=== PATIENT | female | born 1980 | race Caucasian/White ===

== ENCOUNTER 2016-09-27 18:09 | Emergency (ER) | payer OTHER | END 2016-09-27 19:28 | disposition home or self-care (01) | DX: B37.3 Candidiasis of vulva and vagina (principal); N76.0 Acute vaginitis; B96.89 Other specified bacterial agents as the cause of diseases classified elsewhere ==

== ENCOUNTER 2016-10-20 10:17 | Outpatient (CLI) | payer OTHER | END 2016-10-20 10:18 | disposition home or self-care (01) | DX: R10.2 Pelvic and perineal pain (principal) ==

== ENCOUNTER 2016-12-04 19:07 | Outpatient (CLI) | payer OTHER | END 2016-12-04 19:08 | disposition home or self-care (01) | DX: N83.202 Unspecified ovarian cyst, left side (principal) ==

== ENCOUNTER 2018-04-23 08:00 | Outpatient (CLI) | payer BC, OTHER ==
[2018-04-23] MEDS ORDERED: GADOBUTROL 10 MMOL/10 ML VIAL ONE (08:14)
[2018-04-23] MEDS ORDERED: GADOBUTROL 10 MMOL/10 ML VIAL IVP ONE (09:29)
--- NOTE | 2018-04-23 11:26 | MRI Report ---
Reason: LEFT KNEE PAIN Procedure Date: 04/23/2018 Accession Number: [id number] / [id number] Procedure: MRI - Knee LT W/O CPT Code: FULL RESULT: EXAM: LEFT KNEE MRI WITHOUT CONTRAST EXAM DATE: 04/23/2018 08:10 AM. CLINICAL HISTORY: Left knee pain. COMPARISON: Knee 3 view left 01/23/2018 3:03 PM. TECHNIQUE: Multiplanar, multisequence T1-weighted and fluid-sensitive sequences of the knee without contrast. Other: None. FINDINGS: Bones: Previous ACL repair. Bone grafts and hardware in expected positions with local metallic artifact. Alignment normal. No fracture or marrow edema. Articular Cartilage: Unremarkable. Medial Meniscus: The medial meniscus is intact. Lateral Meniscus: The lateral meniscus is intact. Cruciate Ligaments: ACL graft intact. PCL intact. Collateral Ligaments: The medial collateral and lateral collateral ligamentous structures are intact. Tendons: The quadriceps, patellar, semimembranosus, and popliteus tendons are unremarkable. Musculature: No edema or fatty atrophy. Other: No effusion. No popliteal cyst. No loose bodies. The medial and lateral retinacula are intact. The subcutaneous tissues and fat pads are unremarkable. IMPRESSION: 1. ACL graft repair appears intact. 2. Alignment normal. No fracture or marrow edema. 3. No additional evidence of internal derangement. [facility] MUSCULOSKELET[facility] SECTION
--- NOTE | 2018-04-23 12:00 | MRI Report ---
Reason: LEFT KNEE PAIN Procedure Date: 04/23/2018 Accession Number: [id number] / [id number] Procedure: MRI - Lower Leg (Tib-Fib) LT W/WO CPT Code: FULL RESULT: EXAM: LEFT ANKLE/HINDFOOT MRI WITHOUT AND WITH CONTRAST EXAM DATE: 04/23/2018 09:39 AM. CLINICAL HISTORY: Left knee pain. COMPARISON: Ankle 3 view left 01/23/2018 3:44 PM. TECHNIQUE: Multiplanar, multisequence T1-weighted and fluid-sensitive sequences of the ankle before and after administration of intravenous contrast. IV contrast: 10 mL Gadavist. Other: None. FINDINGS: Bones: 1 x 0.5 cm grade 1 to grade 2 osteochondral lesion medial talar dome with mild subcortical enhancement and marrow edema. Overlying cartilage thinning. Remaining bony structures unremarkable. Articular Cartilage: Focal cartilage thinning medial talar dome. Ligaments: The anterior and posterior tibiofibular, anterior and posterior talofibular, and calcaneofibular ligaments are intact. The deep and superficial deltoid and spring ligaments are intact. Anterior Tendons: The tibialis anterior, extensor hallucis longus, and extensor digitorum longus tendons are unremarkable. Medial Tendons: The tibialis posterior, flexor digitorum longus, and flexor hallucis longus tendons are unremarkable. Lateral Tendons: The peroneus brevis and longus are unremarkable. Achilles Tendon: The Achilles tendon is unremarkable. Musculature: No edema or fatty atrophy. Other: No effusions or synovitis. The contents of the sinus tarsi and tarsal tunnel are unremarkable. No plantar fasciitis. The subcutaneous tissues are unremarkable. No abscess or cellulitis. IMPRESSION: 1. 1 x 0.5 cm grade 1 to grade 2 osteochondral lesion medial talar dome with moderate to severe cartilage thinning and underlying subcortical marrow edema/enhancement. No evidence of a detached or displaced osteochondral fragment. 2. Tendons and ligaments intact. Remaining bony structures unremarkable. [facility] MUSCULOSKELET[facility]IOLOGY SECTION
== END 2018-04-23 08:01 | disposition home or self-care (01) ==
LOC: DI 08:00
PROVIDERS: ATTEND Orthopaedic Surgery
DX: M25.562 Pain in left knee (principal); M89.9 Disorder of bone, unspecified; M24.172 Other articular cartilage disorders, left ankle
CPT/HCPCS: 73720; 73721; A9585

== ENCOUNTER 2018-12-09 22:37 | Outpatient (CLI) | payer BC, OTHER ==
--- NOTE | 2018-12-10 11:40 | Ultrasound Report ---
Reason: MULTINODULAR GOITER Procedure Date: 12/09/2018 Accession Number: [id number] / [id number] Procedure: US - Head or Neck Soft Tissue CPT Code: FULL RESULT: EXAM: THYROID ULTRASOUND EXAM DATE: 12/09/2018 11:45 PM. CLINICAL HISTORY: Multinodular goiter. COMPARISON: None. TECHNIQUE: Real time sonographic imaging of the thyroid was performed by the assistant account manager. Multiple event sales representative static images were saved for review. FINDINGS: THYROID GLAND: Right Lobe: 8.8 x 2.7 x 2.8 cm, volume 34.8 cc. Normal background echotexture. Right Lobe Nodules: 1. Spongiform/very low suspicion 7 mm nodule superior pole. 2. 1.3 cm cyst upper pole. 3. Spongiform/very low suspicion 3.8 cm midpole nodule. 4. Hypoechoic oval 1.2 cm nodule indeterminate between low and intermediate suspicion, lower pole. Left Lobe: 8.9 x 2.8 x 2.3 cm, volume 30 cc. Normal background echotexture. Left Lobe Nodules: 1. 1.6 cm mixed cystic solid/low suspicion nodule superior pole. 2. 2.1 cm spongiform/very low suspicion nodule midpole. 3. 2.4 cm spongiform/very low suspicion medial lower pole nodule. 4. 1.6 cm solid/oval/hypoechoic intermediate suspicion nodule lateral lower pole. Isthmus: 0.76 cm AP. Isthmic Nodules: 2 cysts largest measures 1.3. LYMPH NODES: No adenopathy demonstrated in the central or lateral compartment. OTHER: None. IMPRESSION: 1. Bilateral thyroid enlargement with multiple cysts and nodules as described, consistent with multinodular goiter. 2. There are bilateral findings which meet criteria for fine needle aspiration and/or followup based on either size or morphology. Highest value potential targets for FNA are in the lower pole of the right thyroid and the lateral lower pole of the left thyroid, and FNA of these nodules is recommended. Management recommendations are based on 2015 [place] [employer] Management Guidelines for Adult Patients with Thyroid Nodules and Differentiated Thyroid Cancer. [facility]
== END 2018-12-09 22:38 | disposition home or self-care (01) ==
LOC: DI 22:37
PROVIDERS: ATTEND Family Medicine
DX: E04.2 Nontoxic multinodular goiter (principal)
CPT/HCPCS: 76536